=== PATIENT | male | born 1980 | race Caucasian/White ===

== ENCOUNTER 2017-10-31 12:45 | Emergency (ER) | payer BC ==
[~2017-10-31] VITALS: Ht 180.3 cm; Wt 74.8 kg
[~2017-10-31 12:45] MED LIST: ALBUTEROL0.09 MG/A2 IH; AMOXICILLIN500 M2 PO; ANAPROX DS550 MG PO; ATARAX25 MG PO; LOMOTIL 0.025 M1 TAB PO; NKHM PO; NORCO 325 MG-51 TAB PO; PEN-VK500 MG PO; PERIDEX 480 ML480 ML PO; PHENERGAN25 M1 PO; PREDNICOT20 MG PO; ROBITUSSIN AC 110 ML PO; SEPTRA DS 800 M1 TAB PO; ZITHROMAX Z PA250 MG PO; ZOFRAN ODT4 MG SL
[2017-10-31] MEDS ORDERED: FLONASE ALLERG9.9 ML NAS (13:20)
[2017-10-31] MEDS ORDERED: CLARITIN10 MG PO (13:20)
[2017-10-31] MEDS ORDERED: ROBITUSSIN DM 105 ML PO (13:20)
[2017-10-31] MEDS ORDERED: PREDNISONE10 MG PO (13:20)
== END 2017-10-31 14:26 | disposition home or self-care (01) ==
LOC: ED 12:45
DX: S40.011A Contusion of right shoulder, initial encounter (principal); J01.90 Acute sinusitis, unspecified; R03.0 Elevated blood-pressure reading, without diagnosis of hypertension; Z91.030 Bee allergy status; W19.XXXA Unspecified fall, initial encounter; Y93.89 Activity, other specified; Y92.89 Other specified places as the place of occurrence of the external cause; Y99.9 Unspecified external cause status

== ENCOUNTER 2017-11-13 06:34 | Emergency (ER) | payer BC ==
[~2017-11-13] VITALS: Ht 182.8 cm; Wt 74.8 kg
[~2017-11-13 06:34] MED LIST changes: +CLARITIN10 MG PO; +FLONASE ALLERG9.9 ML NAS; +PREDNISONE10 MG PO; +ROBITUSSIN DM 105 ML PO
== END 2017-11-13 07:35 | disposition home or self-care (01) ==
LOC: ED 06:34
DX: S05.02XA Injury of conjunctiva and corneal abrasion without foreign body, left eye, initial encounter (principal); H01.004 Unspecified blepharitis left upper eyelid; Z79.899 Other long term (current) drug therapy; Z91.030 Bee allergy status; X58.XXXA Exposure to other specified factors, initial encounter; Y93.89 Activity, other specified; Y92.89 Other specified places as the place of occurrence of the external cause; Y99.9 Unspecified external cause status

== ENCOUNTER 2019-01-24 11:00 | Emergency (ER) | payer SELFPAY ==
[~2019-01-24] VITALS: Ht 180.3 cm; Wt 72.6 kg
[2019-01-24] MEDS ORDERED: IBU800 MG PO (11:20)
[2019-01-24] MEDS ORDERED: PENICILLIN VK500 MG PO (11:20)
[2019-06-06] MEDS ORDERED: CLINDAMYCIN HC300 MG PO (06:23)
== END 2019-01-24 11:24 | disposition home or self-care (01) ==
LOC: ED 11:00
DX: K04.7 Periapical abscess without sinus (principal); K02.9 Dental caries, unspecified; Z91.030 Bee allergy status

== ENCOUNTER 2019-09-26 07:48 | Emergency (ER) | payer SELFPAY ==
[~2019-09-26] VITALS: Ht 180.3 cm; Wt 74.8 kg
[~2019-09-26 07:48] MED LIST changes: +CLINDAMYCIN HC300 MG PO; +IBU800 MG PO; +PENICILLIN VK500 MG PO
== END 2019-09-26 08:07 | disposition home or self-care (01) ==
LOC: ED 07:48
DX: J06.9 Acute upper respiratory infection, unspecified (principal); Z91.030 Bee allergy status; Z79.2 Long term (current) use of antibiotics; Z79.899 Other long term (current) drug therapy

== ENCOUNTER 2021-11-15 15:36 | Emergency (ER) | payer OTHER | END 2021-11-15 16:25 | disposition left against medical advice (07) | LOC: ED 15:36 | DX: R11.10 Vomiting, unspecified (principal); R05.9 Cough, unspecified; H92.01 Otalgia, right ear; Z53.21 Procedure and treatment not carried out due to patient leaving prior to being seen by health care provider ==

== ENCOUNTER 2022-09-22 12:17 | Emergency (ER) | payer OTHER ==
[~2022-09-22] VITALS: Ht 180.3 cm; Wt 74.8 kg
== END 2022-09-22 14:15 | disposition home or self-care (01) ==
LOC: ED 12:17
DX: B34.9 Viral infection, unspecified (principal); Z20.822 Contact with and (suspected) exposure to COVID-19; Z79.2 Long term (current) use of antibiotics; Z79.899 Other long term (current) drug therapy

== ENCOUNTER → 2022-12-02 | Outpatient (CLI) | payer OTHER ==
[2022-12-02 08:38] LABS: MEAN CELL VOLUME 86.5 fl (80.0-94.0); MEAN CORPUSCULAR HGB 30.8 pg (27.0-31.0); MEAN CORPUSCULAR HGB CONC 35.6 g/dl (33.0-37.0); RED BLOOD COUNT 4.97 10*6/uL (4.50-5.90); RED CELL DISTRI WIDTH 12.3 % (0-14.5); WHITE BLOOD COUNT 4.6 10*3/uL (4.8-10.8)
[2022-12-02 08:52] LABS: ALKALINE PHOSPHATASE 86 U/L (46-116); BUN 14 mg/dl (9-23); CHLORIDE 103 mmol/L (98-107); CHOLESTEROL 159 mg/dL (<200); LDL CHOLESTEROL 102 mg/dL (9-159); POTASSIUM 3.7 mmol/L (3.4-5.1); SGPT/ALT 26 U/L (10-49); TOTAL PROTEIN 7.3 gm/dL (6.0-8.0); TRIGLYCERIDES 71 mg/dl (<150)
[2022-12-07 00:06] LABS: TESTOSTERONE FREE, (DIRECT) 6.2 pg/mL (6.8-21.5)
== END | disposition home or self-care (01) ==
LOC: LAB 07:54
PROVIDERS: ATTEND Family Medicine
DX: Z00.00 Encounter for general adult medical examination without abnormal findings (principal); R53.83 Other fatigue

== ENCOUNTER → 2022-12-16 | Outpatient (CLI) | payer OTHER | END | disposition home or self-care (01) | LOC: LAB 10:12 | PROVIDERS: ATTEND Family Medicine | DX: G93.32 Myalgic encephalomyelitis/chronic fatigue syndrome (principal); E34.9 Endocrine disorder, unspecified; R53.83 Other fatigue ==

== ENCOUNTER 2023-01-11 09:35 | Emergency (ER) | payer OTHER | END 2023-01-11 10:57 | disposition home or self-care (01) | LOC: ED 09:35 | DX: B34.9 Viral infection, unspecified (principal) ==

== ENCOUNTER 2023-03-03 08:33 | Emergency (ER) | payer OTHER ==
[~2023-03-03] VITALS: Ht 180.3 cm; Wt 79.4 kg
[2023-03-03] MEDS ORDERED: AMOXICILLIN500 M3 PO (09:08)
== END 2023-03-03 09:13 | disposition home or self-care (01) ==
LOC: ED 08:33
DX: S02.5XXA Fracture of tooth (traumatic), initial encounter for closed fracture (principal); K04.7 Periapical abscess without sinus; Z87.891 Personal history of nicotine dependence; X58.XXXA Exposure to other specified factors, initial encounter; Y93.89 Activity, other specified; Y92.89 Other specified places as the place of occurrence of the external cause; Y99.8 Other external cause status

== ENCOUNTER 2024-08-06 18:15 | Emergency (ER) | payer OTHER ==
[~2024-08-06] VITALS: Ht 154.9 cm; Wt 79.4 kg
[~2024-08-06 18:15] MED LIST changes: +AMOXICILLIN500 M3 PO
[2024-08-06] MEDS ORDERED: AVPAK AZITHROM250 MG PO (20:26)
== END 2024-08-06 20:39 | disposition home or self-care (01) ==
LOC: ED 18:15
DX: J40 Bronchitis, not specified as acute or chronic (principal); Z20.822 Contact with and (suspected) exposure to COVID-19; F17.290 Nicotine dependence, other tobacco product, uncomplicated

== ENCOUNTER 2025-01-01 07:56 | Emergency (ER) | payer OTHER ==
[~2025-01-01] VITALS: Ht 180.3 cm; Wt 79.4 kg
[~2025-01-01 07:56] MED LIST changes: +AVPAK AZITHROM250 MG PO
[2025-01-01] MEDS ORDERED: Acetaminophen/Oxycodone 5 MG/325 MG TABLET PO ONE (08:10)
[2025-01-01] MEDS ORDERED: MELOXICAM15 MG PO (08:11)
== END 2025-01-01 08:13 | disposition home or self-care (01) ==
LOC: ED 07:56
DX: K04.7 Periapical abscess without sinus (principal); R22.0 Localized swelling, mass and lump, head

== ENCOUNTER 2025-04-03 07:13 | Emergency (ER) | payer OTHER ==
[~2025-04-03] VITALS: Ht 180.3 cm; Wt 79.4 kg
[~2025-04-03 07:13] MED LIST changes: +MELOXICAM15 MG PO
[2025-04-03] MEDS ORDERED: Ondansetron4 MG PO (07:54)
[2025-04-03] MEDS ORDERED: PREDNISONE50 MG PO (07:54)
== END 2025-04-03 08:12 | disposition home or self-care (01) ==
LOC: ED 07:13
DX: B34.9 Viral infection, unspecified (principal); R11.2 Nausea with vomiting, unspecified; R19.7 Diarrhea, unspecified